=== PATIENT | female | born 1965 | race Caucasian/White ===

== ENCOUNTER 2017-10-15 15:09 | Emergency (ER) | payer OTHER ==
[~2017-10-15] VITALS: Ht 160 cm; Wt 65.8 kg
--- OUTSIDE RECORDS SUMMARY | 2017-10-15 15:20 | External Medical Summary Rpt | CCD ---
Demographics Preferred Language Austrian Marital Status Unknown Bahai Affiliation Unknown Race Unknown Ethnic Group Unknown Author Author , AUGUST KOCH Address Unknown Phone Immunization No patient found.
--- OUTSIDE RECORDS SUMMARY | 2017-10-15 15:20 | External Medical Summary Rpt | CCD ---
Demographics Preferred Language Pry[place]in[place] Marital Status Unknown Quaker Affiliation Unknown Race Unknown Ethnic Group Unknown Author Author , AUGUST KOCH Address Unknown Phone Immunization No patient found.
--- OUTSIDE RECORDS SUMMARY | 2017-10-15 15:20 | External Medical Summary Rpt | CCD ---
Author Author AUGUST Address Unknown Phone .Upside Purpose Continuity of Care Document - through 2016
--- OUTSIDE RECORDS SUMMARY | 2017-10-15 15:20 | External Medical Summary Rpt | CCD ---
Author Author [facility] Organization [facility] Address Unknown Phone Unavailable Purpose Continuity of Care Document - through 2016
--- OUTSIDE RECORDS SUMMARY | 2017-10-15 15:20 | External Medical Summary Rpt | CCD ---
Author Author AUGUST Address Unknown Phone [email or web address] Purpose Continuity of Care Document - through 2016
[2017-10-15] MEDS ORDERED: FLEXERIL10 MG PO (15:32)
[2017-10-15] MEDS ORDERED: IBUPROFEN100 MG/51 OR (15:33)
--- NOTE | 2017-10-15 16:06 | Urgent Treatment Center Report ---
History of Present Issue Date/Time Seen by Provider 10/15/17 6193 Visit Reason Pt arrived:Walked Presenting Problem:PT IS C/O COUGH AND CHEST CONGESTION Location if Accident: Onset of symptoms date/time:/ or onset unknown for:MEDICAL HX UNKNOWN Have you (or family members/close friends) recently traveled outside the [place]? N If Yes, where/when: Have you had exposure to infectious disease within the past month? TB? Other? Specify: Patient state that she has been having cough and chest congestion for about a week now that has continued to get worse State that she is also having sinus pain and drainage and feels like it is running down her throat States that she has taken several over the counter medications trying to see if it would help but has not had no relief States that cough seems to get worse at night and making her throat even more irritated ALLERGIES Coded Allergies: Penicillins (10/15/17) amoxicillin (10/15/17) Home Medications Reported Medications Cyclobenzaprine Hcl (Flexeril) 5 MG PO BID IBUPROFEN (Ibuprofen 100MG/5ML Susp Udc) 20 MG OR DAILY-DM History Medical History General CAD? No Angina: No IN: No Hypertension? No Hyperlipidemia? No CHF? No DVT? No PE? No COPD? No Asthma? No Anemia? No GERD? No Gastric ulcers? No GI Bleed? No Hernia? No Thyroid Problems? No Hypothyroidism? No CVA? No Seizures? No Diabetes? No Renal Insuffiency? No UTI? No Stones? No BPH? No GB Disease: No Nephritic Syndrome? No Asplenia? No Hepatitis? No Sickle Cell Disease? No Arthritis? No Migraines? No Cataracts? No Glaucoma? No MRSA? No HIV? No TB? No Anxiety? No Depression? No Cancer? No More? No Immunization HX DT/Tetanus 5-10 Years Ago Surgical Hx Previous Surgery?N Social History Smoking Hx Smoker: Never Smoker Tobacco: No Alcohol Alcohol: No Review of Systems All Other Systems Reviewed and Negative ENT ear pain, nose congestion, throat pain. Respiratory cough, denies shortness of breath, denies wheezing Physical Exam Vital Signs Vital Signs Date Time Temp Pulse Resp B/P Pulse O2 O2 Flow FiO2 Ox Delivery Rate 10/15 1529 97.8 96 20 136/70 100 General Appearance normal appearance, WD/WN, no apparent distress Ear, Nose, Throat sinus pain/drainage, nasal congestion, Throat red, irritated, drainage noted with tenderness noted maxillary sinus reports dark yellow drainage from sinuses Respiratory Status Yes: trachea midline, chest symmetrical, non tender chest. No: respiratory distress. Cardiovascular normal exam, regular rate/rhythm, no peripheral edema Neurologic alert, normal exam, oriented x 3 Medical Decision Making LABS/Meds/Orders Pt receiving controlled substance in ED? No Results/Orders Orders Procedure Date/time Status CHEST(2 VIEWS-NOT PORTABLE) 10/15 1529 Active XRAY/CT/US XRAY/CT/US XRAY chest XR interpretation by discussed w/radiologist Xray Results no infiltrates Departure Departure Time of Disposition 1602 Disposition DC Home or Self Care(routine) Clinical Impression Primary Impression: Upper respiratory infection Qualifiers: URI type: unspecified URI Qualified Code: J06.9 - Acute upper respiratory infection, unspecified Condition STABLE Patient Instructions Cough, DI for Sinusitis, Sinus Headache, Sinusitis, Sore Throat Additional Instructions * Monitor Temp. Tylenol and/or Ibuprofen as needed. ER if fever is no less than 101 despite alternating Tylenol and Ibuprofen * Encourage fluids, water, Gatorade, powerade, pedialyte if infant/toddler/or child * Warm salt water gargles for throat irritation *Warm fluids *Sore throat lozenges *Sleep elevated *humidifier or vaporizer Lots of rest Increase fluids, water, Gatorade, powerade Follow up IMMEDIATELY for new or worsening of symptoms OR no noticeable improvement over the next 48-72 hours. 911 immediately for any life threatening symptoms such as chest pain or difficulty breathing Discharge Counseling Counseled pt/family regarding diagnosis, medications/RX, home care, follow up needs Prescriptions Current Visit Scripts Clarithromycin (Biaxin 250MG Tab) 250 MG PO BID #20 TAB Albuterol Sulfate (Proair Hfa) 2 PUFFS IH QID #1 INH Methylprednisolone (Medrol Dose Mukul) 4 MG PO UD #1 MUKUL TAKE DIRECTED ON PACKAGING Fluticasone Propionate (Flonase 50 Mcg Nasal [place]) 2 SPRAY NA DAILY #1 BOT PROMETHAZINE/DEXTROMETHORPHAN (Promethazine-Dm Syrup) 5 ML PO Q4HP PRN cough #120 SYR at 1610
[2017-10-15] MEDS ORDERED: PROAIR HFA0.09 MG/AC IH (16:07)
[2017-10-15] MEDS ORDERED: MEDROL 4MG. DOSE4 MG PO (16:07)
[2017-10-15] MEDS ORDERED: FLONASE 50 MCG16 GM (16:07)
[2017-10-15] MEDS ORDERED: BIAXIN 250MG T250 MG PO (16:07)
[2017-10-15] MEDS ORDERED: PROMETHAZINE D118 ML PO (16:09)
[2017-10-15 16:11] VITALS: BP 136/70
--- NOTE | 2017-10-15 16:32 | RADIOLOGY REPORT PS360 ---
CHEST(2 VIEWS-NOT PORTABLE) Ordering physician: SEAN DURHAM APRN Age: 52 years Female INDICATION: chest symptomsCOUGH a productive cough 2 weeks. Nonsmoker PROCEDURE: CHEST(2 VIEWS-NOT PORTABLE) FINDINGS: . No prominent findings but I am suspect there may be very subtle airway inflammatory changes a subtle patchy infiltrate/,, possible subtle pneumonia at right infrahilar region towards right lung base. Likely involving right middle lobe. In contrast the left lung and left lung base appears slightly clearer . Upper lung jiménez clear. No pneumothorax. No pleural effusion. Heart normal size. Normal pulmonary vascularity. Hilar and mediastinal structures appear satisfactory. Chest wall unremarkable.. IMPRESSION ----- Suggestion of minimal airspace disease right infrahilar region towards right lung base ./.-Suspect subtle pneumonic infiltrate here right infrahilar region most likely extending to the RML
== END 2017-10-15 16:12 | disposition home or self-care (01) ==
LOC: UTC 15:09
DX: J06.9 Acute upper respiratory infection, unspecified (principal); Z88.0 Allergy status to penicillin